=== PATIENT | male | born 1970 | race Caucasian/White ===

== ENCOUNTER 2016-11-27 02:36 | Emergency (ER) | payer OTHER ==
[~2016-11-27] VITALS: Ht 185.4 cm; Wt 80.7 kg
[2016-11-27 02:40] VITALS: BP 117/75
--- NOTE | 2016-11-27 03:15 | ED HEAD/FACIAL INJ COMPLAINT ---
History of Present Illness General Chief Complaint: Laceration Procedure Stated Complaint: "PER PT FELL CUT HEAD" Source: patient, old records Exam Limitations: intoxication Vital Signs & Intake/Output Vital Signs & Intake/Output Vital Signs Date Time Temp Pulse Resp B/P B/P Pulse O2 O2 Flow FiO2 Mean Ox Delivery Rate 11/27 0240 97.8 82 18 117/75 95 Room Air Allergies Coded Allergies: No Known Allergies (11/27/16) Reconcile Medications No Known Home Medications Triage Note: PER PT/ FELL AND HIT HEAD NO LOC, BLEEDING CONTROLLED LAC TO BACK OF HEAD OCCIPUT AREA Triage Nurses Notes Reviewed? yes Onset: Just prior to arrival Severity: moderate Location: apical Method of Injury: direct blow, fall, incised Loss of Consciousness: no loss of consciousness HPI: Prior to admission patient lost his balance and fell striking his head on a sharp object sustaining laceration on the scalp. There is no loss of consciousness fever chills nausea vomiting diarrhea abdominal pain chest pain shortness breath headache dysuria rash. Past History Travel History Traveled to [place] past 21 day No Medical History Any Pertinent Medical History? see below for history Neurological: NONE EENT: NONE Cardiovascular: CHOL Respiratory: NONE Gastrointestinal: NONE Hepatic: NONE Renal: NONE Musculoskeletal: NONE Psychiatric: NONE Endocrine: NONE Surgical History Surgical History: non-contributory Psychosocial History What is your primary language Irish Tobacco Use: Current Daily Use Daily Tobacco Use Amount/Type: => 5 Cigarettes daily Family History Hx Contributory? No Review of Systems Review of Systems Constitutional: Reports: no symptoms. EENTM: Reports: no symptoms. Respiratory: Reports: no symptoms. Cardiovascular: Reports: no symptoms. GI: Reports: no symptoms. Genitourinary: Reports: no symptoms. Musculoskeletal: Reports: no symptoms. Skin: Reports: see HPI. Neurological/Psychological: Reports: no symptoms. Hematologic/Endocrine: Reports: no symptoms. Immunologic/Allergic: Reports: no symptoms. All Other Systems: Reviewed and Negative Physical Exam Physical Exam General Appearance: well developed/nourished, alert, awake, anxious, comfortable , thin Head: lacerations Eyes: Bilateral: PERRL, EOMI. Ears, Nose, Throat: normal pharynx, normal ENT inspection, hearing grossly normal Neck: normal inspection, supple Respiratory: normal breath sounds Cardiovascular: regular rate/rhythm Gastrointestinal: soft, non-tender Back: normal inspection Extremities: normal inspection, normal range of motion, no edema Psychiatric: awake, alert, oriented x 3 Cranial Nerves: normal hearing, normal speech, PERRL Coordination/Gait: normal finger to nose, normal gait Motor/Sensory: no motor/sensory deficits Reflexes: 2+: bicep (R), bicep (L). Skin: intact, normal color, warm/dry Lymphatic: no anterior cervical kiki Progress Differential Diagnosis: skull fracture Plan of Care: Wound repair Departure Departure Time of Disposition: 313 Disposition: HOME OR SELF CARE Condition: Stable Clinical Impression Primary Impression: Laceration of scalp Qualifiers: Encounter type: initial encounter Qualified Code: S01.01XA - Laceration without foreign body of scalp, initial encounter Referrals: PATIENT HAS NO PRIMARY CARE DR (PCP/Family) Additional Instructions: Staple removal 10-14 days Departure Forms: Customer Survey General Discharge Information Prescriptions: Current Visit Scripts No Known Home Medications Procedures Laceration/Wound Repair Laceration/Wound Repair: Wound Location: head Wound's Depth, Shape: irregular Wound Length (cm): 6 Wound Explored: clean, no foreign body removed Irrigated w/ Saline (ccs): 250 Betadine Prep? No Volume Anesthetic (ccs): 0 Wound Repaired With: staple Suture Size/Type: nam Number of Sutures: 7 Layer Closure? No Sterile Dressing Applied: No Splint Applied? No Sling Applied? No Tetanus Status: up to date
== END 2016-11-27 03:19 ==
LOC: ERH 02:36
DX: S01.01XA Laceration without foreign body of scalp, initial encounter (principal); W19.XXXA Unspecified fall, initial encounter